=== PATIENT | male | born 1950 | race Caucasian/White ===

== ENCOUNTER 2017-06-06 09:22 | Outpatient (CLI) | payer MEDICARE, BC ==
--- NOTE | 2017-06-06 11:01 | ULT ---
THYROID ULTRASOUND: History: Multinodular goiter. Comparison: 06-04-16 FINDINGS: Real-time imaging of the right and left lobes of the thyroid were performed. These show very heteroge neous gland. The right lobe measures 4.3 x 4.5 x 6.2 cm and the left lobe 4.7 x 5.8 x 6.4 cm. Multipl e bilateral thyroid nodules are identified. The largest on the right is more in the inferior pole reg ion, it measures 3.8 cm in maximal diameter although the entire gland has a very nodular appearance. It is difficult to define discrete nodules. Left lobe shows similar changes with a probably slightly more discrete nodule measuring 5 cm in length. IMPRESSION: Multinodular gland with bilateral thyroid nodules, some of which are very difficult to define. Gabby wong I feel that this is stable as compared to the prior study. POS: VIANCA
== END 2017-06-06 09:23 | disposition home or self-care (01) ==
LOC: ULT 09:22
PROVIDERS: ATTEND Otolaryngology Plastic Surgery within the Head & Neck
DX: E04.2 Nontoxic multinodular goiter (principal)
CPT/HCPCS: 76536

== ENCOUNTER 2018-12-02 13:49 | Outpatient (CLI) | payer MEDICARE, BC ==
--- NOTE | 2018-12-02 16:44 | ULT ---
THYROID ULTRASOUND: INDICATIONS: Multinodular goiter. COMPARISON: Thyroid exam from 06/06/2017. FINDINGS: Both lobes are heterogeneous and enlarged, similar in appearance to the prior exam. Findings are con sistent with a multinodular goiter. The nodules are difficult to delineate due to the diffuse hetero geneity and enlargement of both lobes and isthmus. A nodular of the inferior left lobe, near the ist hmus, is measured at 1.5 to 3 cm, and a mid inferior left lobe nodule is measured at 1.5 to 2 cm. Th e size, heterogeneity, and appearance of the thyroid appears stable from the prior exam. The right l obe measures 4.5 cm in AP dimension today, whereas it previously measured 4.5 cm. It measures 4.0 cm in width, whereas it previously measured 4.3 cm in width. The left lobe measures 4.6 cm in AP dimension and 5.7 cm in width, with prior measurements recorded a t 5.7 and 4.7 cm. IMPRESSION: Large, heterogeneous thyroid, consistent with a multinodular goiter, stable from prior exam. POS: VIANCA
== END 2018-12-02 13:50 | disposition home or self-care (01) ==
LOC: BICULT 13:49
PROVIDERS: ATTEND Internal Medicine Endocrinology, Diabetes & Metabolism
DX: E05.00 Thyrotoxicosis with diffuse goiter without thyrotoxic crisis or storm (principal)
CPT/HCPCS: 76536

== ENCOUNTER 2018-12-18 10:16 | Day surgery (SDC) | payer MEDICARE, BC ==
[2018-12-17 17:27] VITALS: BMI 46.0
[2018-12-18] MEDS ORDERED: Lidocaine 1% w/Epinephrine 1:100K 20 ML VIAL ONE (11:54)
[2018-12-18 11:56] LABS: Hemoglobin 14.9 g/dL (14.0-18.0)
[2018-12-18] MEDS ORDERED: Midazolam HCl 2 mg/2 ml Vial ONE ×2 (11:56→12:13)
[2018-12-18] MEDS ORDERED: Fentanyl 100 MCG/2 ML VIAL ONE (11:56)
[2018-12-18 12:15] LABS: Anion Gap 11 mmol/L (10-20); BUN (Urea Nitrogen) 20 mg/dL (8.4-25.7); Calc. Creatinine Clearance 139 mL/min (70-130); Calcium 9.3 mg/dL (7.8-10.44); Carbon Dioxide 27 mmol/L (23-31); Chloride 104 mmol/L (98-107); Estimated GFR-MDRD 68; Glucose 171 mg/dL (80-115); Potassium 4.1 mmol/L (3.5-5.1); Sodium 138 mmol/L (136-145)
[2018-12-18] MEDS ORDERED: Lidocaine 1% PF 5 ML VIAL ONE (15:11)
[2018-12-18] MEDS ORDERED: Dexamethasone 20 MG/5 ML VIAL ONE (15:11)
[2018-12-18] MEDS ORDERED: Succinylcholine Chloride 20 MG/ML 10 ml SYRINGE FS ONE (15:11)
[2018-12-18] MEDS ORDERED: Ondansetron PF 4 MG/2 ML Vial ONE (15:11)
[2018-12-18] MEDS ORDERED: PHENYLEPHRINE-NS 100 MCG/ML 10 ML SYRINGE ONE (15:11)
[2018-12-18] MEDS ORDERED: PROPOFOL 200 MG/20 ML VIAL ONE (15:11)
--- NOTE | 2018-12-19 09:23 | OP ---
DATE OF PROCEDURE: 12/18/2018 PREOPERATIVE DIAGNOSIS: Left parotid mass. POSTOPERATIVE DIAGNOSES: Left parotid mass and oncocytic lesion. PROCEDURES PERFORMED: Left superficial parotidectomy with facial nerve dissection and facial nerve monitoring. PROCEDURE IN DETAIL: After consent was obtained, the patient was identified, brought to the OR and placed on table supine position. General endotracheal anesthesia was obtained. The patient was positioned for surgery. Facial nerve monitoring was placed in both the periorbital and perioral region and documented to be functioning well. We then prepped and draped the patient in standard fashion, positioned then for surgery. The line of intended incision was delineated with a marking pen and started two fingerbreadths below the angle of the jaw and then extended to the preauricular area. An incision was carried down through the skin, subcutaneous tissues and to the parotid fascia, at which point the plane was elevated anteriorly and the flap was secured. This then allowed for access to the parotid gland. We then dissected the parotid fascia between the sternocleidomastoid muscle in the preauricular area region of the external canal cartilage. Ultimately, we reached the pointer cartilage at which time we dissected inferiorly such that the posterior belly of the digastric was identified. We then meticulously dissected in this region until we encountered the trunk of the facial nerve. Each of the trunk was then dissected in sequentially smaller branches as the parotid tumor was reflected anteriorly. Ultimately when we got past the parotid tumor and dissected the facial nerves towards its insertions. 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 We then obtained hemostasis and turned our attention towards closing the wound with Fibrillar and Surgicel was placed in the deep aspect of the wound and the flap was reapproximated and closed in 2 layers with 4-0 Monocryl used to close the deeper tissues and reapproximated the parotid fascia and 6-0 Prolene for the skin. Sterile dressings were applied and closed with bandages. The patient was awakened extubated with facial and nerve moving and intact. The patient stated interval until stabilized and the tonsil. Job ID: [id number]
== END 2018-12-18 18:28 | disposition home or self-care (01) ==
LOC: SDC 10:16
PROVIDERS: ATTEND Specialist
PROC: 0CB90ZZ Excision of Left Parotid Gland, Open Approach (ICD-10-PCS; principal; 2018-12-18)
DX: D11.0 Benign neoplasm of parotid gland (principal); E04.9 Nontoxic goiter, unspecified; E04.1 Nontoxic single thyroid nodule; I10 Essential (primary) hypertension; E11.9 Type 2 diabetes mellitus without complications; G47.30 Sleep apnea, unspecified; G89.29 Other chronic pain; M54.9 Dorsalgia, unspecified; E66.9 Obesity, unspecified; Z68.42 Body mass index [BMI] 45.0-49.9, adult; Z79.84 Long term (current) use of oral hypoglycemic drugs; Z79.899 Other long term (current) drug therapy; Z88.0 Allergy status to penicillin; Z88.7 Allergy status to serum and vaccine; Z99.89 Dependence on other enabling machines and devices
CPT/HCPCS: 36415; 80048; 85014; 85018; 88307; 88321; 93005; 93010; J1100; J2001; J2250; J2405; J2704; J3010

== ENCOUNTER 2019-01-01 11:09 | Day surgery (SDC) | payer MEDICARE, BC ==
[2018-12-31 12:27] VITALS: BMI 44.6
[2019-01-01 12:16] LABS: Hemoglobin 15.3 g/dL (14.0-18.0); Platelet Count 119 thou/uL (130-400)
[2019-01-01] MEDS ORDERED: Lidocaine 1% w/Epinephrine 1:100K 20 ML VIAL ONE (12:26)
[2019-01-01] MEDS ORDERED: Fentanyl 100 MCG/2 ML VIAL ONE ×2 (12:26→14:46)
[2019-01-01 12:35] LABS: Anion Gap 12 mmol/L (10-20); BUN (Urea Nitrogen) 19 mg/dL (8.4-25.7); Calc. Creatinine Clearance 134 mL/min (70-130); Carbon Dioxide 28 mmol/L (23-31); Chloride 102 mmol/L (98-107); Estimated GFR-MDRD 66; Glucose 204 mg/dL (80-115); Potassium 4.3 mmol/L (3.5-5.1); Sodium 138 mmol/L (136-145)
[2019-01-01] MEDS ORDERED: PHENYLEPHRINE-NS 100 MCG/ML 10 ML SYRINGE ONE (13:10)
[2019-01-01] MEDS ORDERED: Ondansetron PF 4 MG/2 ML Vial ONE (13:10)
[2019-01-01] MEDS ORDERED: PROPOFOL 200 MG/20 ML VIAL ONE (13:10)
[2019-01-01] MEDS ORDERED: Dexamethasone 20 MG/5 ML VIAL ONE (13:10)
[2019-01-01] MEDS ORDERED: ePHEDrine 50 MG/ML VIAL ONE (13:10)
[2019-01-01] MEDS ORDERED: Succinylcholine Chloride 20 MG/ML 10 ml SYRINGE FS ONE (13:10)
[2019-01-01] MEDS ORDERED: Lidocaine 1% PF 5 ML VIAL ONE (13:10)
[2019-01-01] MEDS ORDERED: Rocuronium Bromide 10 MG/ML (10ML VIAL) ONE (13:10)
[2019-01-01] MEDS ORDERED: EPINEPHrine 1 MG/ML AMP ONE (13:54)
[2019-01-01] MEDS ORDERED: Sodium Chloride 0.9% 10 ML ONE (13:54)
[2019-01-01] MEDS ORDERED: Bacitracin Zinc Ointment 30 gm TUBE ONE (14:12)
--- NOTE | 2019-01-07 10:57 | OP ---
DATE OF PROCEDURE: 01/01/2019 PREOPERATIVE DIAGNOSIS: Post parotidectomy hematoma. POSTOPERATIVE DIAGNOSIS: Post parotidectomy hematoma/seroma. PROCEDURE PERFORMED: Incision and drainage of left parotid hematoma with complex closure. DESCRIPTION OF PROCEDURE: After consent was obtained, the patient was identified and brought to the OR, placed on the operating room table in supine position. Laryngeal mask anesthesia was obtained. The patient was positioned for surgery. The previous incision was opened by removing the sutures and opening the wound and again raising the parotid flaps. The bleeding point was identified. Hematoma was evacuated and there was diffuse granulation tissue consistent with healing. A vessel was identified in the left superior preauricular area consistent with the superficial temporal vein, which was suture ligated. The bleeding points were bipolared, care not to injure the facial nerve. A small drain was placed following reapproximation of the flaps and the skin was closed in 2 layers using Monocryl to reapproximate the platysma and dermis and 6-0 Prolene for the skin. The patient was awakened, taken to the recovery room in stable condition prior to discharge home. A small drain was placed to facilitate drainage of the postoperative segments. Job ID: [id number]
== END 2019-01-01 16:35 | disposition home or self-care (01) ==
LOC: SDC 11:09
PROVIDERS: ATTEND Specialist
PROC: 0H91XZZ Drainage of Face Skin, External Approach (ICD-10-PCS; principal; 2019-01-01)
DX: L76.32 Postprocedural hematoma of skin and subcutaneous tissue following other procedure (principal); I10 Essential (primary) hypertension; E66.9 Obesity, unspecified; G47.30 Sleep apnea, unspecified; Z68.41 Body mass index [BMI] 40.0-44.9, adult; Z88.0 Allergy status to penicillin; Z88.7 Allergy status to serum and vaccine; Z99.89 Dependence on other enabling machines and devices
CPT/HCPCS: 36415; 80048; 85014; 85018; 85049; J0171; J1100; J2001; J2405; J2704; J3010; J3490

== ENCOUNTER 2022-02-28 08:28 | Outpatient (CLI) | payer MEDICARE, BC | END 2022-02-28 08:29 | disposition home or self-care (01) | LOC: TBSIIMAG 08:28 | PROVIDERS: ATTEND Family Medicine | DX: M70.41 Prepatellar bursitis, right knee (principal); S83.241A Other tear of medial meniscus, current injury, right knee, initial encounter; M94.261 Chondromalacia, right knee ==

== ENCOUNTER 2022-08-10 14:24 | Outpatient (CLI) | payer MEDICARE, BC | END 2022-08-10 14:25 | disposition home or self-care (01) | LOC: ULT 14:24 | PROVIDERS: ATTEND Internal Medicine Endocrinology, Diabetes & Metabolism | DX: E05.00 Thyrotoxicosis with diffuse goiter without thyrotoxic crisis or storm (principal); E05.21 Thyrotoxicosis with toxic multinodular goiter with thyrotoxic crisis or storm; E01.0 Iodine-deficiency related diffuse (endemic) goiter; E06.3 Autoimmune thyroiditis | CPT/HCPCS: 76536 ==

== ENCOUNTER 2023-02-13 11:57 | Day surgery (SDC) | payer MEDICARE, BC ==
[2023-02-13] MEDS ORDERED: Lidocaine 1% PF 5 ML VIAL ONE (12:23)
[2023-02-13] MEDS ORDERED: Sodium Bicarbonate 2.5 MEQ/5 ML VIAL ONE (12:23)
[2023-02-13] MEDS ORDERED: FLU VACC QS2023(65UP)/MF59C/PF 60 MCG/0.5 ML SYRINGE IM ONE (14:30)
== END 2023-02-13 13:40 | disposition home or self-care (01) ==
LOC: ULT 11:57
PROVIDERS: ATTEND Internal Medicine Endocrinology, Diabetes & Metabolism
PROC: 0GBG3ZX Excision of Left Thyroid Gland Lobe, Percutaneous Approach, Diagnostic (ICD-10-PCS; principal; 2023-02-13)
DX: E04.1 Nontoxic single thyroid nodule (principal)
CPT/HCPCS: 10005; 90694; G0008; 88173; 88305; 90471